=== PATIENT | male | born 1975 | race Caucasian/White ===

== ENCOUNTER 2021-03-18 17:40 | Emergency (ER) | payer BC, SELFPAY ==
--- NOTE | ~2021-03-18 | CT_ITS ---
EXAMINATION: CT abdomen pelvis w con DATE: 03/18/2021 20:27 INDICATION: Epigastric abdominal pain, nausea, diminished appetite, weight loss for 5-6 month. TECHNIQUE: Computed tomography (CT) of the abdomen and pelvis was performed with 100 cc Omnipaque 350 intravenous contrast. Automated exposure control and iterative reconstruction technique were employe d. Exam dose: 630.09 mGy-cm total exam DLP. COMPARISON: 07/25/2017 Limited abdominal ultrasound examination FINDINGS: The lung bases are clear. Normal heart size. No pericardial or pleural effusion. The liver, gallbladder, bile ducts, pancreas, pancreatic duct, spleen and adrenal glands appear unrem arkable. No renal mass lesion or urinary tract calculus or hydroureteronephrosis. The urinary bladder and pros holland gland are unremarkable. Normal caliber of the abdominal aorta. There is atherosclerotic calcification of the abdominal aorta and iliac arteries. No intraperitoneal or retroperitoneal or pelvic mass lesion or adenopathy or asci leah. Normal appendix. There is diverticulosis of the left and right colon; no CT evidence of diverticulitis. No bowel obstruction, bowel wall thickening, pneumatosis or intraperitoneal free air. Severe degenerative disc disease at L2-3, moderate degenerative disc disease at L3-4. Posterior surgical fusion at L4-S1. IMPRESSION: Diverticulosis of left and right colon; no CT evidence of diverticulitis Normal appendix Status post posterior spinal fusion at L4-S1 Severe degenerative disc disease at L2-3. Reviewed, dictated and finalized at [facility]. Reviewed, dictated and finalized at [facility]. IMPRESSION: Diverticulosis of left and right colon; no CT evidence of divertic ulitis Normal appendix Status post posterior spinal fusion at L4-S1 Severe degenerative disc disease at L2-3.
[2021-03-18 17:45] VITALS: BP 157/93; PULSE 79; RESP 15; TEMP 36.8; O2SAT 99
[2021-03-18 17:57] LABS: Basophils Absolute Auto 0.1 K/mm3 (0.0-0.1); Basophils Percent Auto 0.5 % (0.2-1.2); Eosinophils Absolute Auto 0.2 K/mm3 (0-0.3); Eosinophils Percent Auto 1.8 % (0-4.4); Hematocrit 43.8 % (42.0-52.0); Hemoglobin 14.6 g/dL (14.0-18.0); Immature Granulocyte Absolute 0.04 K/mm3 (0.00-0.031); Immature Granulocyte Percent A 0.3 % (0-0.5); Lymphocytes Absolute Auto 2.84 K/mm3 (0.9-3.2); Lymphocytes Percent Auto 24.7 % (18.3-44.2); Mean Corpuscular HGB Conc 33.3 g/dl (32-36); Mean Corpuscular Hemoglobin 30.5 pg (26-34); Mean Corpuscular Volume 91.4 fl (80-100); Monocytes Absolute Auto 0.6 K/mm3 (0.1-0.6); Monocytes Percent Auto 5.3 % (2.6-8.5); Neutrophils Absolute Auto 7.7 K/mm3 (1.3-6.7); Neutrophils Percent Auto 67.4 % (45.5-73.1); Platelet Count Result 330 k/mm3 (150-375); Red Blood Count 4.79 M/mm3 (4.6-6.20); Red Cell Distribution Width 13.4 % (11.5-14.5); White Blood Count 11.5 K/mm3 (4.5-10.0)
[2021-03-18 18:08] LABS: Alanine Aminotransferase 28 U/L (4-50); Albumin Level 4.6 g/dL (3.5-5.1); Alkaline Phosphatase 74 U/L (38-126); Anion Gap 10 mmol/L (8-16); Aspartate Amino Transferase 38 U/L (17-59); Bilirubin,Total 0.9 mg/dL (0.2-1.3); Blood Urea Nitrogen 11 mg/dL (9-20); Calcium 9.7 mg/dL (8.4-10.2); Carbon Dioxide 28 mmol/L (22-30); Chloride 103 mmol/L (98-107); Estimated CRCL calculation 101 ml/min; Estimated Glomerular Filt Rate > 60; Glucose 104 mg/dL (75-110); Lipase 110 U/L (23-300); Potassium 4.4 mmol/L (3.4-5.0); Sodium 141 mmol/L (137-145)
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
[2021-03-18 21:22] VITALS: BP 151/71; PULSE 70; RESP 16; O2SAT 100
== END 2021-03-18 21:25 | disposition home or self-care (01) ==
PROVIDERS: Emergency Provider Family Medicine; PCP Internal Medicine
DX: R10.13 Epigastric pain (principal); R63.4 Abnormal weight loss; I10 Essential (primary) hypertension; E11.9 Type 2 diabetes mellitus without complications; E78.5 Hyperlipidemia, unspecified; Z68.27 Body mass index [BMI] 27.0-27.9, adult; Z79.84 Long term (current) use of oral hypoglycemic drugs
CPT/HCPCS: 36415; 74177; 80053; 83690; 85025; 99284; Q9967

== ENCOUNTER 2021-03-23 09:22 | Outpatient (CLI) | payer BC, SELFPAY ==
--- NOTE | ~2021-03-23 | XR_ITS ---
EXAMINATION: XR chest 2V 03/23/2021 09:38 INDICATION: Centralized chest pain and weight loss PROCEDURE: 2 view chest COMPARISON: 01/20/2012 FINDINGS: The lungs are clear. The cardiomediastinal silhouette is within normal limits. There are no pleural effusions. There is no pneumothorax suspected. IMPRESSION: 1: NO ACUTE CARDIOPULMONARY DISEASE. Reviewed, dictated and finalized at [facility].
== END 2021-03-23 09:23 | disposition home or self-care (01) ==
PROVIDERS: PCP Internal Medicine; Visit Provider Internal Medicine
DX: E04.2 Nontoxic multinodular goiter (principal); R63.4 Abnormal weight loss
CPT/HCPCS: 71046

== ENCOUNTER → 2021-04-06 00:09 | Outpatient (CLI) | payer BC, SELFPAY ==
[2021-04-06 15:56] LABS: SARS-CoV-2 RNA PCR Negative
== END ==
PROVIDERS: PCP Internal Medicine; Visit Provider Internal Medicine Gastroenterology
DX: Z01.812 Encounter for preprocedural laboratory examination (principal); Z20.822 Contact with and (suspected) exposure to COVID-19
CPT/HCPCS: C9803; U0003; U0005

== ENCOUNTER 2021-04-09 00:18 | Day surgery (SDC) | payer BC, SELFPAY ==
[2021-03-25 13:11] VITALS: BMI 28.4
[2021-04-09 08:38] VITALS: BP 125/82; PULSE 68; RESP 18; TEMP 36.4; O2SAT 98
[2021-04-09] MEDS: LACTATED RINGERS 1,000 ML 150 ML IV CONT (08:49)
[2021-04-09 08:54] LABS: Glucose Point of Care 124 mg/dl (65-105)
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
[2021-04-09 10:20] VITALS: BP 110/63; PULSE 75; RESP 26; O2SAT 100
[2021-04-09 10:30] VITALS: BP 110/81; PULSE 67; RESP 24; O2SAT 98
[2021-04-09 10:40] VITALS: BP 111/68; PULSE 55; RESP 22; O2SAT 100
== END 2021-04-09 10:50 | disposition home or self-care (01) ==
PROVIDERS: PCP Internal Medicine; Visit Provider Internal Medicine Gastroenterology
PROC: 0DJ08ZZ Inspection of Upper Intestinal Tract, Via Natural or Artificial Opening Endoscopic (ICD-10-PCS; CPT 43235; principal; 2021-04-09 10:00)
DX: K21.9 Gastro-esophageal reflux disease without esophagitis (principal); K29.80 Duodenitis without bleeding; R63.4 Abnormal weight loss; I10 Essential (primary) hypertension; E78.5 Hyperlipidemia, unspecified; Z79.84 Long term (current) use of oral hypoglycemic drugs; F17.210 Nicotine dependence, cigarettes, uncomplicated
CPT/HCPCS: 43239; 82948; 87081; 88305; J2704; J7120

== ENCOUNTER 2021-10-10 08:51 | Emergency (ER) | payer BC, SELFPAY ==
[2021-10-10] VITALS (45 sets, daily range): BP systolic 131–167; BP diastolic 72–105; PULSE 49–95; RESP 10–31; TEMP 36.7; O2SAT 96–100
--- NOTE | ~2021-10-10 | CT_ITS ---
EXAMINATION: CT abdomen pelvis w con DATE: 10/10/2021 11:30 INDICATION: Upper abdominal pain. Vomiting. TECHNIQUE: Computed tomography (CT) of the abdomen and pelvis was performed with 100 mL Omnipaque 350 intravenous contrast. Automated exposure control and iterative reconstruction technique were employe d. The dose-length product was 596.12 mGy-cm. COMPARISON: CT abdomen and pelvis 03/18/2021 FINDINGS: The visualized portions of the lung bases demonstrate mild atelectasis. No pleural effusion . The heart size is normal. No pericardial effusion. The liver is normal. There is focal thickening o f the fundus of the gallbladder, consistent with adenomyomatosis. The spleen, pancreas, adrenal gland s, and kidneys are normal. There is diverticulosis of the colon without evidence of diverticulitis. T here are no dilated loops of bowel. The appendix is normal. 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 There are no patho logically enlarged lymph nodes. There is no free intraperitoneal fluid. There is severe lumbar spondy losis. There changes of posterior fusion procedure from L3 to L5 with pedicle screws. IMPRESSION: 1. 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 Reviewed, dictated and finalized at [facility]. OR [employer]ES [employer]PERATIONS MANAGER
--- NOTE | 2021-10-10 09:48 | ECG_ITS ---
Measurements Intervals [place] Rate: 62 P: 51 WV: 181 QRS: 49 QRSD: 98 T: 43 QT: 407 QTc: 415 Interpretive Statements SINUS RHYTHM WITH SINUS ARRHYTHMIA BASELINE ARTIFACT- I, II, III, AVL NORMAL ECG Electronically Signed On 10-10-2021 12:27:17 [employer] DELIVERY [employer]ER by Sunny Rosenthal D.O.
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
[2021-10-10] MEDS: SODIUM CHLORIDE 0.9% IV 1,000 ML 999 ML IV CONT (10:15)
[2021-10-10] MEDS: ONDANSETRON INJ 4 MG/2 ML VIAL IV PUSH (10:15)
[2021-10-10] MEDS: PANTOPRAZOLE SODIUM IV 40 MG VIAL IV PUSH (10:15)
[2021-10-10 10:27] LABS: Basophils Percent Auto 0.2 % (0.2-1.2); Eosinophils Percent Auto 0.1 % (0-4.4); Hematocrit 43.1 % (42.0-52.0); Hemoglobin 14.5 g/dL (14.0-18.0); Immature Granulocyte Absolute 0.04 K/mm3 (0.00-0.031); Immature Granulocyte Percent A 0.3 % (0-0.5); Lymphocytes Absolute Auto 1.47 K/mm3 (0.9-3.2); Lymphocytes Percent Auto 11.2 % (18.3-44.2); Mean Corpuscular HGB Conc 33.6 g/dl (32-36); Mean Corpuscular Hemoglobin 31.3 pg (26-34); Mean Corpuscular Volume 92.9 fl (80-100); Mean Platelet Volume 8.8 fl (7.4-10.4); Monocytes Absolute Auto 0.6 K/mm3 (0.1-0.6); Monocytes Percent Auto 4.3 % (2.6-8.5); Neutrophils Percent Auto 83.9 % (45.5-73.1); Platelet Count Result 329 k/mm3 (150-375); Red Blood Count 4.64 M/mm3 (4.6-6.20); Red Cell Distribution Width 13.3 % (11.5-14.5); White Blood Count 13.1 K/mm3 (4.5-10.0)
[2021-10-10 10:32] LABS: Add Urine Microscopic? YES; Appearance Urine Clear (Clear); Bilirubin Urine Negative (Negative); Blood Urine 1+ (Negative); Color Urine Yellow (Yellow); Glucose Urine UA 1+ mg/dL (Negative); Ketones Urine Trace mg/dL (Negative); Leukocyte Esterase Ur Negative LEU/UL (Negative); Nitrate Urine Negative (Negative); Protein Urine Negative (Negative); Specific Grav Ur 1.017 (1.001-1.035); Squamous Epithelial Cell Urine Occasional /hpf (Few); Urobilinogen Urine Negative mg/dL (<2.0); WBC Urine 0-3 /hpf
[2021-10-10 10:41] LABS: Alanine Aminotransferase 42 U/L (4-50); Albumin Level 4.7 g/dL (3.5-5.1); Alkaline Phosphatase 64 U/L (38-126); Anion Gap 10 mmol/L (8-16); Aspartate Amino Transferase 42 U/L (17-59); Bilirubin,Total 0.8 mg/dL (0.2-1.3); Blood Urea Nitrogen 16 mg/dL (9-20); Calcium 9.6 mg/dL (8.4-10.2); Carbon Dioxide 29 mmol/L (22-30); Chloride 97 mmol/L (98-107); Estimated CRCL calculation 90 ml/min; Estimated Glomerular Filt Rate > 60; Glucose 137 mg/dL (65-110); Lipase 66 U/L (23-300); Sodium 136 mmol/L (137-145)
[2021-10-10 10:52] LABS: Troponin I < 0.012 ng/mL (0.000-0.034)
[2021-10-10 13:03] LABS: Lactic Acid Reflex 0.8 mmol/L (0.7-2.1)
[2021-10-10] MEDS: ENOXAPARIN 100 MG/ML SYRINGE SUB-Q (13:29)
[2021-10-10] MEDS: ASPIRIN 81 MG CHEWABLE TABLET 324 MG PO (13:30)
[2021-10-10] MEDS: hydrALAZINE HCL 20 MG/ML VIAL 10 MG IV PUSH (13:33)
--- NOTE | 2021-10-10 15:14 | PC.NURSE ---
Patient observed ambulating out of ED with spouse. Charge contacted. Lost sight of Patient in parking lot.
[2021-10-10 16:27] LABS: EDCOVIDSCREEN Negative (Negative)
--- NOTE | 2021-10-10 17:06 | PC.NURSE ---
hari aware of pts negative covid status. waiting bed availability. pt resting with at bedside
--- NOTE | 2021-10-10 19:22 | PC.NURSE ---
Report received from TRAMAINE Greer. Assumed care of patient at this time.
--- NOTE | 2021-10-10 19:38 | PC.NURSE ---
Contacted [facility] bed placement to get update on patient bed status. Spoke with Margarita, she states they are still waiting for a bed, unaware of the time one may become available.
[2021-10-10] MEDS: SODIUM CHLORIDE 0.9% IV 1,000 ML 150 ML IV CONT (20:32)
[2021-10-10] MEDS: MORPHINE SULFATE (*CRX) 4 MG/ML INJ IV PUSH (20:33)
--- NOTE | 2021-10-10 22:15 | PC.NURSE ---
Called [facility] bed placement line, spoke with Denise, she states they are still waiting for a room at this time. Gave update on patient status and VS. She states she will call when a bed becomes available.
[2021-10-11] VITALS (46 sets, daily range): BP systolic 122–156; BP diastolic 72–99; PULSE 46–90; RESP 5–28; TEMP 36.6; O2SAT 95–100
[2021-10-11] MEDS: HYDROmorphone HCL INJ (*CRX) 1 MG/ML SYR IV PUSH (00:19)
[2021-10-11] MEDS: PANTOPRAZOLE SODIUM IV 40 MG VIAL IV PUSH ×2 (01:11→09:14)
[2021-10-11] MEDS: ENOXAPARIN 100 MG/ML SYRINGE SUB-Q ×2 (01:11→14:48)
--- NOTE | 2021-10-11 02:12 | PC.NURSE ---
Called [facility] bed placement line, spoke with Amanda, she stated patient is still on the wait list at this time.
[2021-10-11] MEDS: SODIUM CHLORIDE 0.9% IV 1,000 ML 150 ML ×3 (03:13→16:28)
--- NOTE | 2021-10-11 05:54 | PC.NURSE ---
Patient requesting pain medication, ERP notified.
--- NOTE | 2021-10-11 06:02 | PC.NURSE ---
Per ERP, patient is NPO.
--- NOTE | 2021-10-11 06:25 | PC.NURSE ---
Contacted [facility] bed placement line for update. Spoke with Denise, she stated that the patient is still on the waiting list for a vascular bed, she also stated that they will call when a bed becomes available.
[2021-10-11] MEDS: MORPHINE SULFATE (*CRX) 4 MG/ML INJ IV PUSH ×2 (09:14→14:47)
[2021-10-11 12:42] LABS: Basophils Absolute Auto 0.1 K/mm3 (0.0-0.1); Basophils Percent Auto 0.5 % (0.2-1.2); Eosinophils Absolute Auto 0.1 K/mm3 (0-0.3); Eosinophils Percent Auto 0.5 % (0-4.4); Hematocrit 38.4 % (42.0-52.0); Immature Granulocyte Absolute 0.04 K/mm3 (0.00-0.031); Immature Granulocyte Percent A 0.3 % (0-0.5); Lymphocytes Absolute Auto 2.84 K/mm3 (0.9-3.2); Mean Corpuscular HGB Conc 33.9 g/dl (32-36); Mean Corpuscular Volume 91.6 fl (80-100); Mean Platelet Volume 8.8 fl (7.4-10.4); Monocytes Absolute Auto 0.8 K/mm3 (0.1-0.6); Monocytes Percent Auto 6.1 % (2.6-8.5); Neutrophils Absolute Auto 8.6 K/mm3 (1.3-6.7); Neutrophils Percent Auto 69.6 % (45.5-73.1); Platelet Count Result 295 k/mm3 (150-375); Red Blood Count 4.19 M/mm3 (4.6-6.20); Red Cell Distribution Width 13.2 % (11.5-14.5); White Blood Count 12.4 K/mm3 (4.5-10.0)
[2021-10-11 12:53] LABS: Alanine Aminotransferase 32 U/L (4-50); Albumin Level 3.8 g/dL (3.5-5.1); Alkaline Phosphatase 63 U/L (38-126); Anion Gap 8 mmol/L (8-16); Aspartate Amino Transferase 32 U/L (17-59); Bilirubin,Total 0.7 mg/dL (0.2-1.3); Blood Urea Nitrogen 12 mg/dL (9-20); Calcium 8.9 mg/dL (8.4-10.2); Carbon Dioxide 26 mmol/L (22-30); Chloride 103 mmol/L (98-107); Estimated CRCL calculation 90 ml/min; Estimated Glomerular Filt Rate > 60; Glucose 119 mg/dL (65-110); Lactic Acid Reflex 0.8 mmol/L (0.7-2.1); Potassium 4.3 mmol/L (3.4-5.0); Sodium 137 mmol/L (137-145)
--- NOTE | 2021-10-11 13:46 | PC.NURSE ---
went into introduce self to pt, he was asleep, equal chest rise and fall noted. lights out in room. still no word from [facility] on bed placement
[2021-10-11] MEDS: ONDANSETRON INJ 4 MG/2 ML VIAL IV PUSH (14:47)
--- NOTE | 2021-10-11 14:59 | PC.NURSE ---
[id number] requesting disc of imaging
== END 2021-10-11 16:30 | disposition short-term general hospital (02) ==
PROVIDERS: General Practice; Emergency Provider Emergency Medicine; PCP Internal Medicine
DX: I77.79 Dissection of other specified artery (principal); Z20.822 Contact with and (suspected) exposure to COVID-19; K21.9 Gastro-esophageal reflux disease without esophagitis; I10 Essential (primary) hypertension; E78.5 Hyperlipidemia, unspecified; Z87.891 Personal history of nicotine dependence
CPT/HCPCS: 36415; 74177; 80053; 81001; 83605; 83690; 84484; 85025; 87426; 93005; 96361; 96372; 96374; 96375; 96376; 99285; A9270; C9113; C9803; J0360; J1170; J1650; J2270; J2405; J7030; Q9967

== ENCOUNTER 2022-12-17 07:17 | Outpatient (CLI) | payer BC, SELFPAY ==
--- NOTE | 2022-12-17 08:35 | ECG_ITS ---
Measurements Intervals [place] Rate: 63 P: 40 MO: 133 QRS: 62 QRSD: 102 T: 54 QT: 394 QTc: 404 Interpretive Statements SINUS RHYTHM NORMAL ECG COMPARED TO ECG 10/10/2021 10:23:15 NO SIGNIFICANT CHANGES Electronically Signed On 12-17-2022 8:51:57 CDT by Sunny Rosenthal D.O.
== END 2022-12-17 07:18 | disposition home or self-care (01) ==
LOC: ANHCARD 07:20
PROVIDERS: PCP Internal Medicine; Visit Provider Nurse Practitioner Family
DX: Z01.818 Encounter for other preprocedural examination (principal)
CPT/HCPCS: 93005

== ENCOUNTER 2023-01-05 10:57 | Outpatient (CLI) | payer BC, SELFPAY | END 2023-01-05 10:58 | disposition home or self-care (01) | LOC: ANHSURGERY 11:01 | PROVIDERS: PCP Internal Medicine; Visit Provider Orthopaedic Surgery | DX: M25.512 Pain in left shoulder (principal); Z01.818 Encounter for other preprocedural examination | CPT/HCPCS: 87081; 87147; 87181; 87186 ==

== ENCOUNTER 2023-01-10 00:41 | Day surgery (SDC) | payer BC, SELFPAY ==
[2023-01-03 16:58] VITALS: BMI 30.7
--- NOTE | 2023-01-03 17:04 | SUR.PREOP ---
Report to the Outpatient Waiting Room, entrance under the green pavilion located off [facility], at time 0600 on date 01/10/23. Planned Procedure Time: 0730. Time changes happen often and if your time is changed the preop area will call you the afternoon before. - You and your visitor will be asked to self-screen and do not enter if you have any COVID symptoms. - Only one visitor is requested with a max of two and NO children visitors are allowed at this time. - The patient visitor may be requested to leave or wait in car when not with patient due to distancing restrictions. - A mask is optional within the hospital at this time. Patients may have clear liquids (water, carbonated beverages, clear teas, apple juice) until 3 hours prior to surgery with a maximum of 20 ounces. - No food from midnight until time of surgery 20 OUNCES BEFORE 0430 - Infants may have breast milk until 4 hours before surgery, formula 6 hours prior to surgery. - Children will be allowed to drink immediately following surgery. If applicable, please bring a bottle or sippy cup to assist with drinking. Juice, water, soda, and popsicles are readily available. For infants on formula, please bring formula the day of surgery. Pacifiers are allowed. Take the following medications with a SIP of water the morning of surgery: ___AMLODIPINE DO NOT STOP ANY OF YOUR OTHER PRESCRIPTION MEDICATIONS PRIOR TO SURGERY ?EXCEPT THE FOLLOWING Medications to discontinue per physician __PLAVIX [address] ORDERED, MULTIVITAMIN 3 DAYS PRIOR Date to take last dose Please no make-up, nail divehi, hairspray, perfume, deodorant, or body powder the day of surgery. No jewelry (including any body piercings) or valuables the day of surgery, leave them at home. Please take a shower or bath the night before, or the morning of, surgery with an antibacterial soap. Wear comfortable, loose fitting clothing. Children are encouraged to wear pajamas. - Jewelry must be removed prior to entering the operating room. Rings and piercings that are not removed may be cut off. - The hospital will not accept responsibility for valuables. - Please leave all valuables, including medications, at home the day of surgery. If you are going home after surgery, a licensed sales driver must drive you home. - NO public transportation without another adult if you receive anesthesia. - We recommend that an adult stay with you for 24 hours following discharge. - We also recommend that you do not drive, make important decision, drink alcoholic beverages, or take any drugs that were not prescribed by your health care provider for at least 24 hours after your discharge time. For Pediatric surgeries, we recommend two adults accompany the child home. Follow any additional instructions given to you from your surgeon. If you or anyone in your household have experienced Covid symptoms in the past week, please notify your surgeon or the nurse liaison at the phone number below for possible testing. Telephone instructions given to _PATIENT__and asked if any additional questions and then verbalized understanding. Patient advised to call surgeon office or pre surgery nurse liaison [phone] if any additional questions.
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
[2023-01-10] VITALS (8 sets, daily range): BP systolic 98–125; BP diastolic 58–72; PULSE 63–76; RESP 16–24; TEMP 36.2–36.4; O2SAT 94–99
--- NOTE | 2023-01-10 06:24 | SUR.PREOP ---
called dr hawley and made aware of positive staph aureus in nasa swab.
[2023-01-10] MEDS: LACTATED RINGERS 1,000 ML 30 ML IV CONT ×2 (06:55→10:38)
[2023-01-10] MEDS: ACETAMINOPHEN 500 MG TABLET 1000 MG PO (06:56)
[2023-01-10 06:58] LABS: Glucose Point of Care 137 mg/dl (65-105)
[2023-01-10] MEDS: KETOROLAC 15 MG/ML VIAL (*BKC) IV PUSH (07:03)
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
--- NOTE | 2023-01-10 07:05 | WPDHPUPDATE1 ---
History and Physical Update Update Date/Time: 01/10/23 07:05 History and Physical has been reviewed, including an updated exam of the patient. Nasal swab did test positive for Staph aureus. Will treat accordingly. There are NO changes in the patient's condition. Risks, benefits, and alternatives have been discussed and questions answered. Dermal allograft available if indicated. Patient agrees to proceed with procedure.
--- NOTE | 2023-01-10 07:15 | WPDANESPNB ---
Anes - Peripheral Nerve Block Date/Time: 01/10/23 07:15 I have discussed with the patient/family/POA the placement of a peripheral nerve block for post-operative pain management, including associated risks, benefits, complications, and side effects. Alternative methods of post-operative analgesia were detailed. Questions were solicited and answers provided to the satisfaction of the patient/family/POA. Time-Out: A pre-procedural Time-Out was completed immediately before starting the procedure and confirmed: Patient Identification, Site, Procedure, Patient Position and the Availability of Requisite Equipment. Clinical Indications: Acute post-operative pain management requested by the operative surgeon. Nerve Block Insertion Note Anes-nerve block: interscalene left Patient position: supine Skin prep: chlorhexidine Needle: 22 gauge, stimulating, insulated echogenic needle. Needle length: 50 mm Technique: ultrasound Injectate: bupivacaine 0.5% with epi 5 mcg/ml (30cc- no epi) Observations: tolerated well Complications: none Procedure start time:: 727 Procedure end time:: 731
[2023-01-10] MEDS: ceFAZolin 2 GM/D5W 50 ML 2 GM/50 ML BAG IVPB (07:35)
[2023-01-10] MEDS: ceFAZolin SODIUM 1 GM VIAL (08:00)
[2023-01-10] MEDS: ceFAZolin SODIUM 1 GM VIAL IV PUSH (10:15)
--- NOTE | 2023-01-10 10:41 | W.PM.PROC2 ---
Procedure Note - Detailed Date of Procedure 01/10/23 Pre-op Diagnosis left shoulder rotator cuff tear Post-op Diagnosis Same Procedure Performed Arthroscopic debridement with minimal acromioplasty, mini open rotator cuff repair left shoulder with arthro flex 2 x 2.5 cm acellular dermal allograft Surgeon Balta Lai MD [employer] Amy Anesthesia General and Regional Description of Procedure Patient was brought to the operating room and general anesthesia was administered. The preop holding area he had an interscalene block left shoulder. He was given vancomycin and Ancef. His nasal swab tested positive for Staph aureus but the susceptibilities remain pending. He was positioned in the beach chair position the neck in a neutral alignment. The left shoulder prepped draped usual fashion covering all the skin with Ioban accept the top of the shoulder. His passive range of motion was normal. A posterior portal was placed. Anterior superior portal was placed. The articular surfaces were normal long head of the biceps normal. His labrum was somewhat atrophic but I think normal variant for him and the biceps anchor in a. The subscapularis and its insertion appeared normal. Biceps aminata looked normal. No loose bodies in the inferior capsular recess. There was a small full-thickness longitudinally oriented rent mid supraspinatus near the insertion. The arthroscope was placed into the subacromial space. There was pronounced maceration of the superior aspect of the rotator cuff involving supraspinatus and upper infraspinatus. With pronounced thinning the bursal surface of the tendon. There was fraying of the CA ligament. CA ligament was released with cautery device and the undersurface of the anterior rim and smoothed with the acromionizer type agustín. Minimal bone was removed from the anterolateral aspect as he had a type 1 acromion there and a little bit more bone removed from the medial anterior acromion stain just lateral to the AC joint. The remaining skin was covered with Ioban and outer gloves changed. A 2 in longitudinal incision in the off the anterolateral acromion extending distally. The underlying deltoid was exposed intermuscular raphe between anterior hip middle heads was about 5 mm medial to the incision was and this was incised for a split of 4 cm. Is deltoid was very thick and we elected to extend the incision another cm distal to get appropriate access to the rotator cuff under acromion. We did not have to release deltoid from the acromion and adequate exposure was achieved with placement of the core [place] self-retaining retractor. The rotator cuff tear was inspected. Conservative bursectomy performed. There is a 17 mm longitudinal split at the center of the tendon defect which was the capsular tissue and probably a little bit of rotator cuff tendon on top of this is that layer was only a few mm thick. The lateral 1/2 of the greater tuberosity footprint had macerated minimal stump of tendinous tissue there width of about 15 mm at the very insertion which quickly widened to 20 mm. Anterior and posterior to this bursal sided tissue deficiency there was no partial-thickness tearing. The anterior edge I felt went into the rotator cuff interval capsule. A small amount of anterior cable of supraspinatus was still present at its insertion. We released surface adhesions on the supraspinatus and infraspinatus with Basil elevator and assess the mobility. The longitudinal split of the deep layer was able to be approximated with interrupted 2. Ethibond. This left a 2 x 2 and 0.5 cm defect 2 cm wide and 2.5 cm from medial to lateral of the outer approximately 50% of the supraspinatus tendon and anterior edge of infraspinatus. The remaining tendinous tissue became thicker as we moved medially. Realizing that there would be no way to close this versus sided defect as was not a matter of retracted tissue to be mobilized was simply surface deficiency o
[2023-01-10 11:01] LABS: Glucose Point of Care 119 mg/dl (65-105)
--- NOTE | 2023-01-10 11:39 | PM.OP ---
Procedure Note - Brief Procedure Note - Brief Date of procedure: 01/10/23 left shoulder rotator cuff tear Surgeon: OSCAR Bernal Description of procedure: 47-year-old male who underwent arthroscopy of his left shoulder with mini open rotator cuff repair. I was involved in positioning patient on the OR table as well as 1st assisting to the time surgery. Total time spent was 3 hours
--- NOTE | 2023-01-10 12:55 | SUR.PHASEII ---
Patient forgot his photos from Dr Lai this RN spoke to and requested it be mailed to their home, so will be sent to address given.
== END 2023-01-10 12:25 | disposition home or self-care (01) ==
PROVIDERS: PCP Internal Medicine; Visit Provider Orthopaedic Surgery
PROC: (CPT 29805; principal; 2023-01-10 07:30)
DX: S46.012A Strain of muscle(s) and tendon(s) of the rotator cuff of left shoulder, initial encounter (principal); W19.XXXA Unspecified fall, initial encounter; G89.18 Other acute postprocedural pain; Z79.02 Long term (current) use of antithrombotics/antiplatelets; Z79.82 Long term (current) use of aspirin; Z79.84 Long term (current) use of oral hypoglycemic drugs; E78.5 Hyperlipidemia, unspecified; I10 Essential (primary) hypertension; Z87.891 Personal history of nicotine dependence; E66.9 Obesity, unspecified; Z68.31 Body mass index [BMI] 31.0-31.9, adult
CPT/HCPCS: 23410; 64415; 82948; A4565; A9270; J0330; J0690; J1100; J1885; J2250; J2370; J2405; J2704; J3010; J3370; J7120

== ENCOUNTER 2024-03-08 10:28 | Emergency (ER) | payer BC, SELFPAY ==
[2024-03-08 10:45] VITALS: BP 146/106; PULSE 78; RESP 16; TEMP 37.7; O2SAT 100
== END 2024-03-08 11:13 | disposition left against medical advice (07) ==
LOC: EXPBETH 10:32
PROVIDERS: Emergency Provider Nurse Practitioner Family; PCP Nurse Practitioner
DX: Z53.21 Procedure and treatment not carried out due to patient leaving prior to being seen by health care provider (principal)
CPT/HCPCS: 99199

== ENCOUNTER 2024-03-08 13:07 | Outpatient (CLI) | payer BC, SELFPAY ==
--- NOTE | ~2024-03-08 | XR_ITS ---
3 VIEWS LUMBAR SPINE Ordering provider: Adan Goff APRN History: . Back pain HX BACK SURGERY [facility] . Comparison: September 13, 2016 FINDINGS: VERTEBRAL BODIES:Postoperative changes seen at the level of L3, L4, and L5.. No visible fracture or subluxation. DISK SPACES: Degenerative disc disease seen at the level of L1-L2, L3-L4, L4-L5 and L5-S1. Multilevel facet joint disease. SOFT TISSUES: Normal. IMPRESSION: No acute osseous abnormality lumbar spine. Multilevel degenerative disc disease. Consider follow up MRI lumbar spine if there is concern for spinal stenosis/neural impingement. Reviewed, dictated and finalized at location A. IMPRESSION: No acute osseous abnormality lumbar spine. Multilevel degenerative disc disease . Consider follow up MRI lumbar spine if there is concern for spinal stenosis/eran ral impingement.
--- NOTE | ~2024-03-08 | XR_ITS ---
Right Knee Technique: AP, lateral, and sunrise views were obtained. Clinical History: Pain Findings: No fracture or dislocation is seen. Osseous alignment is anatomic. Minimal degenerative spu rring present. Soft tissues are unremarkable. No joint effusion is seen. Impression: Minimal degenerative spurring, predominantly at the patella and intercondylar notch. Reviewed, dictated and finalized at location . Impression: Minimal degenerative spurring, predominantly at the patella and intercondylar n otch.
== END 2024-03-08 13:08 | disposition home or self-care (01) ==
PROVIDERS: PCP Nurse Practitioner; Visit Provider Nurse Practitioner
DX: M25.561 Pain in right knee (principal); Z98.1 Arthrodesis status
CPT/HCPCS: 72100; 73564